=== PATIENT | female | born 1965 | race Asian ===

== ENCOUNTER 2016-07-05 21:51 | Emergency (ER) | payer OTHER ==
[~2016-07-05] VITALS: Ht 160 cm; Wt 80.0 kg
[~2016-07-05 21:51] MED LIST: AMLO5TAB4 PO
[2016-07-05 22:05] VITALS: Ht 160 cm; Wt 80.0 kg
[2016-07-05] MEDS ORDERED: KETOROLAC 30 MG INJ IM STA (23:33)
--- NOTE | 2016-07-05 23:44 | ERD ---
ER Documentation Chief Complaint Date/Time DATE: 07/05/16 TIME: 23:38 Chief Complaint sp fall downhill w/dry bushes, abrasions on both legs w/ pain HPI 50-year-old female presents here in emergency department complains of left hip pain and bilateral knee pain left lower leg pain after falling today. Patient tripped and fell, landed on the dry bushes, has multiple abrasions and lower extremities. Patient is also complaining of left hip pain and bilateral knee pain, left lower leg pain, throbbing pain, 6/10 scale, worse upon movement. Patient did not take any medication to help with symptoms. Patient denies any numbness or tingling. Patient denies any deformity. ROS All systems reviewed and are negative except as per history of present illness. Medications Home Meds Reported Medications Amlodipine Besylate* (Norvasc*) 5 Mg Tablet, 5 MG PO DAILY, TAB 12/21/14 Allergies Allergies: Coded Allergies: No Known Allergies (Verified Allergy, Unknown, 12/21/14) PMhx/Soc History of Surgery: No Anesthesia Reaction: No Hx Neurological Disorder: No Hx Respiratory Disorders: No Hx Cardiac Disorders: Yes (HTN) Hx Psychiatric Problems: No Hx Miscellaneous Medical Probl: No Hx Alcohol Use: No Hx Substance Use: No Hx Tobacco Use: Yes Smoking Status: Current every day smoker FmHx Family History: No coronary disease, No diabetes, No other Physical Exam Vitals Vital Signs Date Time Temp Pulse Resp B/P Pulse Ox O2 Delivery O2 Flow Rate FiO2 07/05/16 22:05 97.8 88 20 151/94 98 Physical Exam GENERAL: The patient is well developed and appropriate for usual state of health, in no apparent distress. CHEST: Clear to auscultation bilaterally. There are no rales, wheezes or rhonchi. HEART: Regular rate and rhythm. No murmurs, clicks, rubs or gallops. No S3 or S4. ABDOMEN: Soft, nontender and nondistended. Good bowel sounds. No rebound or guarding. No gross peritonitis. No gross organomegaly or masses. No Gonzalez sign or McBurney point tenderness. BACK: No midline or flank tenderness. EXTREMITIES: Equal pulses bilaterally. There is no peripheral clubbing, cyanosis or edema. No focal swelling or erythema. Full range of motion. Grossly neurovascularly intact. NEURO: Alert and oriented. Cranial nerves 2-12 intact. Motor strength in all 4 extremities with 5/5 strength. Sensation grossly intact. Normal speech and gait. SKIN: There is no apparent rash or petechia. The skin is warm and dry. HEMATOLOGIC AND LYMPHATIC: There is no evidence of excessive bruising or lymphedema. No gross cervical, axillary, or inguinal lymphadenopathy. Results 24 hrs Current Medications Medications (Trade) Dose Ordered Sig/Heather Route PRN Reason Start Time Stop Time Status Last Admin Dose Admin Ketorolac Tromethamine (Toradol) 30 mg ONCE STAT IM 07/05/16 23:33 07/05/16 23:35 DC 07/05/16 23:50 Diphtheria/ Tetanus/Acell Pertussis (Adacel) 0.5 ml ONCE ONCE IM* 07/06/16 00:00 07/06/16 00:01 DC Tdap was given to prevent tetanus. Patient tolerated medication well.Patient was given medication for pain here in emergency department, patient refused PROCEDURE: XR Left Hip. CLINICAL INDICATION: Left hip pain. TECHNIQUE: AP and frog lateral views of the left hip were performed. COMPARISON: None. FINDINGS: Degenerative changes of the left hip with remodelling of the lateral femoral head and lateral roof of the acetabulum. Otherwise, there is no evident acute fracture IMPRESSION: Degenerative changes in the left hip with lateral joint compartment remodelling , and otherwise, no acute fracture. RPTAT: [facility] Physician [facility] Date Time Electronically viewed and signed by Physician Taqueria on 07/06/2016 01:05 RS/ CC: KATEY MELENDEZ NP PROCEDURE: Left knee x-ray CLINICAL INDICATION: Bilateral knee pain. TECHNIQUE: Weightbearing views of the bilateral knees in AP and tunnel projections, as well as, lateral views of the bilateral knees. There is a total of 4 images. COMPARISON: None FINDINGS: Reference marker is directed to the superior aspect of the lateral left leg, without evident underlying radiographic abnormality. There is normal mineralization. No acute fracture or dislocation is seen. There are no significant degenerative changes. There is no joint effusion. There is no significant soft tissue swelling. IMPRESSION: Unremarkable bilateral knees. RPTAT: [facility] Date Time Electronically viewed and signed by Physician Taqueria on 07/06/2016 01:07 RS/ CC: KATEY MELENDEZ NP PROCEDURE: LEFT TIBIA/FIBULAR - 2 VIEWS CLINICAL INDICATION: 50-year-old female with left lower extremity pain. TECHNIQUE: AP, lateral and oblique views of the left tibia and fibula were obtained. The images reviewed on a PACS workstation. COMPARISON: Left knee obtained concurrently. FINDINGS: There is no evidence for acute fracture or dislocation. The joints are unremarkable. The bone marrow mineralization is within normal limits. No radiopaque foreign bodies are seen. IMPRESSION: Unremarkable left tibia and fibula radiographs. .Kolton Aleman MD, MD Date Time Electronically viewed and signed by .Kolton Aleman MD, on 07/06/2016 01:07 .M/ CC: KATEY MELENDEZ [employer] Crutches was given to the patient to use at home. Procedures/MDM Medical Decision Making: Patient's pain is most likely consistent with a contusion or a sprain. There is no suspicion for neurovascular compromise. Patient has intact sensation and circulation of the affected extremity. There is low suspicion for septic arthritis. Patient does not have any fever. Radiology exams of the affected area does not show any fracture or dislocation. She has abrasions on lower extremities, no symptoms of any major lacerations. Disposition: Home. Patient is given prescription for ibuprofen for pain, Keflex to prevent infection on the abrasion wounds. Patient was advised to elevate the affected area and apply ice on affected area. Patient was advised that if symptoms are worse, numbness, tingling, high fever, unable to move joint, worsening symptoms, to return to emergency department immediately. Otherwise, patient is advised to follow up with the primary care doctor in 5-7 days for reevaluation of symptoms. Departure Diagnosis: Primary Impression: Hip sprain Encounter type: initial encounter Laterality: left Qualified Code: S73.102A - Hip sprain, left, initial encounter Additional Impressions: Contusion of leg Encounter type: initial encounter Laterality: left Qualified Code: S80.12XA - Contusion of leg, left, initial encounter Knee pain Laterality: bilateral Chronicity: acute Qualified Code: M25.561 - Acute pain of both knees Abrasion Condition: Stable Patient Instructions: Abrasion, Contusion, Lower Extremity, Knee Pain, Uncertain Cause, Knee Sprain Additional Instructions: Patient is given prescription for ibuprofen for pain, Keflex to prevent infection on the abrasion wounds. Patient was advised to elevate the affected area and apply ice on affected area. Patient was advised that if symptoms are worse, numbness, tingling, high fever, unable to move joint, worsening symptoms , to return to emergency department immediately. Otherwise, patient is advised to follow up with the primary care doctor in 5-7 days for reevaluation of symptoms. KATEY MELENDEZ NP Jul 05, 2016 23:44
[2016-07-06] MEDS ORDERED: DIPHTH/TET/ACEL PERTUSS (ADULT) 0.5 ML VIAL IM* ONE
--- NOTE | 2016-07-06 01:05 | RADRPT ---
PROCEDURE: XR Left Hip. CLINICAL INDICATION: Left hip pain. TECHNIQUE: AP and frog lateral views of the left hip were performed. COMPARISON: None. FINDINGS: Degenerative changes of the left hip with remodelling of the lateral femoral head and lateral roof o f the acetabulum. Otherwise, there is no evident acute fracture IMPRESSION: Degenerative changes in the left hip with lateral joint compartment remodelling, and otherwise, no a cute fracture. RPTAT: [facility] Date Time Electronically viewed and signed by Angela Cavazos Physician on 07/06/2016 01:05 RS/
--- NOTE | 2016-07-06 01:07 | RADRPT ---
PROCEDURE: LEFT TIBIA/FIBULAR - 2 VIEWS CLINICAL INDICATION: 50-year-old female with left lower extremity pain. TECHNIQUE: AP, lateral and oblique views of the left tibia and fibula were obtained. The images re viewed on a PACS workstation. COMPARISON: Left knee obtained concurrently. FINDINGS: There is no evidence for acute fracture or dislocation. The joints are unremarkable. The bone marro w mineralization is within normal limits. No radiopaque foreign bodies are seen. IMPRESSION: Unremarkable left tibia and fibula radiographs. .Kolton Aleman MD, MD Date Time Electronically viewed and signed by .Kolton Aleman MD, MD on 07/06/2016 01:07 .Rosmery/
--- NOTE | 2016-07-06 01:07 | RADRPT ---
PROCEDURE: Left knee x-ray CLINICAL INDICATION: Bilateral knee pain. TECHNIQUE: Weightbearing views of the bilateral knees in AP and tunnel projections, as well as, lat eral views of the bilateral knees. There is a total of 4 images. COMPARISON: None FINDINGS: Reference marker is directed to the superior aspect of the lateral left leg, without evident underly ing radiographic abnormality. There is normal mineralization. No acute fracture or dislocation is seen. There are no significant degenerative changes. There is no joint effusion. There is no significant soft tissue swelling. IMPRESSION: Unremarkable bilateral knees. RPTAT: [facility] Date Time Electronically viewed and signed by Physician Taqueria on 07/06/2016 01:07 RS/
[2016-07-06] MEDS ORDERED: CEPH-443 PO (01:21)
[2016-07-06] MEDS ORDERED: IBUP-1542 PO (01:21)
[2016-07-06 01:45] VITALS: BP 159/95; PULSE 71; RESP 16
== END 2016-07-06 01:45 | disposition home or self-care (01) ==
LOC: FTE 21:51
DX: S73.102A Unspecified sprain of left hip, initial encounter (principal); S80.12XA Contusion of left lower leg, initial encounter; S89.91XA Unspecified injury of right lower leg, initial encounter; I10 Essential (primary) hypertension; F17.210 Nicotine dependence, cigarettes, uncomplicated; W01.0XXA Fall on same level from slipping, tripping and stumbling without subsequent striking against object, initial encounter; Z23 Encounter for immunization
CPT/HCPCS: 73510; 73562; 73590; 90471; 96372; J1885; Z7502